=== PATIENT | female | born 1945 | race Caucasian/White ===

== ENCOUNTER 2016-06-24 23:08 | Emergency (ER) | payer MEDICARE, BC ==
[~2016-06-24] VITALS: Ht 172.7 cm; Wt 61.2 kg
[2016-06-24] MEDS ORDERED: OMEPRAZOLE D/R20 MG PO (23:14)
[2016-06-24] MEDS ORDERED: CLOPIDOGREL75 MG PO (23:15)
[2016-06-24] MEDS ORDERED: GAVILYTE C WI PO (23:15)
[2016-06-24] MEDS ORDERED: FENOFIBRATE145 M1 PO (23:15)
[2016-06-24] MEDS ORDERED: VITAMIN B-125000 MCG SL (23:15)
[2016-06-24] MEDS ORDERED: ATORVASTATIN CA10 M1 PO (23:15)
[2016-06-24] MEDS ORDERED: TOPROL XL25 MG PO (23:16)
[2016-06-25] MEDS ORDERED: HYDROCODONE BIT1 T11 PO (00:40)
== END 2016-06-25 00:59 | disposition home or self-care (01) ==
LOC: ED 23:08
DX: S42.474A Nondisplaced transcondylar fracture of right humerus, initial encounter for closed fracture (principal); W01.0XXA Fall on same level from slipping, tripping and stumbling without subsequent striking against object, initial encounter; Z79.899 Other long term (current) drug therapy; Y93.89 Activity, other specified; Y92.89 Other specified places as the place of occurrence of the external cause; Y99.8 Other external cause status